=== PATIENT | male | born 1975 ===

== ENCOUNTER 2017-07-08 06:53 | Inpatient (IN) | payer BC ==
--- NOTE | 2017-07-08 08:22 | ED PDOC ---
HPI: Psych/Substance Abuse Time Seen by Provider: 07/08/17 07:17 Chief Complaint (Nursing): Psychiatric Evaluation Chief Complaint (Provider): Anxiety, depresson History Per: Patient History/Exam Limitations: no limitations Onset/Duration Of Symptoms: Intermittent Episodes, Persistent (2 weeks) Current Symptoms Are (Timing): Still Present Suicide/Self Injury Attempted (Context): None Modifying Factor(s): Other (family stressors) Associated Symptoms: Anxiety, Depression, Suicidal Thoughts. denies: Suicidal Plan Additional Complaint(s): 41yo male with no known past medical history, presents to ED for evaluation because he has been feeling "depressed". Patient states for the last 2 weeks, he has been feeling down, unmotivated to work and states he has episodes where he cries without reason. Patient reports he had family stressors 1 year ago related to his marriage but denies any current issue. He reports suicidal ideation but denies any plan. Of note, patient also reporting that his son is "leaving for the army" which has also distressed him. He denies any family history of mental issues. Patient reports occasional alcohol consumption and states he last drank 3 days ago. He denies any other complaints. Past Medical History Reviewed: Historical Data, Nursing Documentation, Vital Signs Vital Signs: Last Vital Signs Temp 98.0 F 07/08/17 07:33 Pulse 62 07/08/17 07:33 Resp 14 07/08/17 07:33 BP 140/73 07/08/17 07:33 Pulse Ox 95 07/08/17 07:33 - Medical History PMH: No Chronic Diseases - Surgical History Surgical History: No Surg Hx - Family History Family History: States: No Known Family Hx - Living Arrangements Living Arrangements: With Family - Social History Current smoker - smoking cessation education provided: No Ex-Smoker (has not smoked in the last 12 months): No Alcohol: Occasional Drugs: Denies - Allergies Allergies/Adverse Reactions: Allergies Allergy/AdvReac Type Severity Reaction Status Date / Time No Known Allergies Allergy Verified 07/08/17 07:58 Review of Systems ROS Statement: Except As Marked, All Systems Reviewed And Found Negative Psych: Positive for: Anxiety, Depression, Suicidal ideation Physical Exam - Reviewed Nursing Documentation Reviewed: Yes Vital Signs Reviewed: Yes - Physical Exam Appears: Positive for: Non-toxic, No Acute Distress Head Exam: Positive for: ATRAUMATIC, NORMAL INSPECTION, NORMOCEPHALIC Skin: Positive for: Normal Color, Warm Eye Exam: Positive for: Normal appearance Neck: Positive for: Normal, Supple Cardiovascular/Chest: Positive for: Regular Rate, Rhythm Respiratory: Positive for: Normal Breath Sounds. Negative for: Respiratory Distress Neurologic/Psych: Positive for: Alert, Oriented, Mood/Affect (tearful appearing) . Negative for: Motor/Sensory Deficits - Laboratory Results Result Diagrams: 07/08/17 09:25 07/08/17 09:25 - ECG O2 Sat by Pulse Oximetry: 95 Medical Decision Making Medical Decision Making: Time: 724 Impression: Anxiety, depression Plan: -- Crisis evaluation Reassess Scribe Attestation: Documented by Bianka Dacosta acting as a scribe for Alisson Quick MD. Provider Attestation: All medical record entries made by the Scribe were at my direction and personally dictated by me. I have reviewed the chart and agree that the record accurately reflects my personal performance of the history, physical exam, medical decision making, and the department course for this patient. I have also personally directed, reviewed, and agree with the discharge instructions and disposition. Disposition - Clinical Impression Clinical Impression: Depression - Patient ED Disposition Is Patient to be Admitted: No Doctor Will See Patient In The: Hospital - Disposition Disposition: Transfer of Care Disposition Time: 10:15 Condition: STABLE Forms: [facility] (Greek) - Pt Status Changed To: Hospital Disposition Of: Inpatient - Admit Certification Admit to Inpatient:: After my assessment, the patient will require hospitalization for at least two midnights. This is because of the severity of symptoms shown, intensity of services needed, and/or the medical risk in this patient being treated as an outpatient. - POA Present On Arrival: None
[2017-07-08 09:40] LABS: BASO % 0.3 % (0.0-2.0); HEMATOCRIT 47.8 % (35.0-51.0); LYMPH # 1.1 K/uL (1.0-4.3); LYMPH % 13.4 % (20.0-40.0); MEAN CELL VOLUME 89.3 fl (80.0-94.0); MEAN CORPUSCULAR HEMOGLOBIN 31.8 pg (27.0-31.0); MEAN CORPUSCULAR HGB CONC 35.6 g/dL (33.0-37.0); MEAN PLATELET VOLUME 8.4 fl (7.2-11.7); MONO # 0.4 K/uL (0.0-0.8); MONO % 4.3 % (0.0-10.0); NEUT # 6.9 K/uL (1.8-7.0); RED CELL DISTRIBUTION WIDTH 12.5 % (11.5-14.5); WHITE BLOOD COUNT 8.4 K/uL (4.8-10.8)
[2017-07-08 09:55] LABS: ALCOHOL SERUM < 10 mg/dl (0-10); BLOOD UREA NITROGEN 10 mg/dl (9-20); CALCIUM 9.6 mg/dL (8.4-10.2); CARBON DIOXIDE 28 mmol/L (22-30); CHLORIDE 104 mmol/L (98-107); GFR AFRICAN-AMERICAN > 60; GLUCOSE,RANDOM 104 mg/dL (75-110); POTASSIUM 3.9 MMOL/L (3.6-5.0); SODIUM 144 mmol/l (132-148)
[2017-07-08 10:11] LABS: RBC URINE 2 /hpf (0-3); URINE BILIRUBIN NEGATIVE (NEGATIVE); URINE BLOOD NEGATIVE (NEGATIVE); URINE COLOR YELLOW (YELLOW); URINE GLUCOSE (UA) NEG (Normal); URINE KETONE TRACE mg/dL (NEGATIVE); URINE LEUKOCYTE ESTERASE NEG Leu/uL (Negative); URINE PROTEIN NEGATIVE (NEGATIVE); URINE UROBILINOGEN 0.2-1.0 mg/dL (0.2-1.0); WBC URINE < 1 /hpf (0-5)
[2017-07-08 11:42] VITALS: O2SAT 97
--- NOTE | 2017-07-08 12:27 | RAD ---
HISTORY: COMPARISON: No prior. TECHNIQUE: Chest PA and lateral FINDINGS: LINES AND TUBES: None. LUNG AND PLEURA: The lungs are well inflated. There is a small calcified nodule in the left upper lobe. No focal consolidation. HEART AND MEDIASTINUM: The heart is not enlarged. The hilar and mediastinal contours are within normal limits. SKELETAL STRUCTURES: The bony structures are within normal limits for the patient's age. VISUALIZED UPPER ABDOMEN: Normal. OTHER FINDINGS: None. IMPRESSION: No active pulmonary disease.
[2017-07-08] MEDS ORDERED: Alum-Mag Hydrox-Simethicone Susp (30 mL) PO PRN (13:52)
[2017-07-08] MEDS ORDERED: Magnesium Hydroxide Susp 30 ml UD PO PRN (13:52)
[2017-07-08] MEDS ORDERED: DiphenhydrAMINE 50 mg/ml Inj IM PRN (13:52)
--- NOTE | 2017-07-08 14:23 | PCM.PSYCH ---
Initial Psychiatric Evaluation - Initial Psychiatric Evaluation Type of Admission: Voluntary Legal Status: Capacity Chief Complaint (in patient's own words): I feel strange, worried and i could not stop crying Patient's Reaction to Hospitalization: pt presented to ER requesting help History of Present Illness and Precipitating Events: pt without previous formal psychiatric diagnosis or treatmentdoing re;atively well till pst two months when he became aware his is possibly having a connection with one of his old friends on [employer], pt became increasingly depressed and anxious, losing trust, pt's son 19 ys old is going to [employer], pt started feeling he is having a lot of losses pt started to have poor sleep with early insomnia, poor appetite, increased anxiety , edginess, passive suicidal ideations feeling he would rather be but no suicidal plan as he felt he would never do that to his children pt reported feeling paranoid at times feeling also something bad would happen, denied other psychotic symptoms deneid manic symptoms denied substance abuse Current Medications: Active Medications Generic Name Dose Route Start Last Admin Trade Name Freq PRN Reason Stop Dose Admin Acetaminophen 650 mg 07/08/17 13:52 Tylenol 325mg Tab PO Q4 PRN Pain, moderate (4-7) Al Hydrox/Mg Hydrox/Simethicone 30 ml 07/08/17 13:52 Maalox Plus 30 Ml PO Q4 PRN Dyspepsia Diphenhydramine HCl 50 mg 07/08/17 13:52 Benadryl IM Q6 PRN Extrapyramidal S/S Unable PO Diphenhydramine HCl 50 mg 07/08/17 13:52 Benadryl PO Q6 PRN Extrapyramidal Symptoms Haloperidol 5 mg 07/08/17 13:52 Haldol PO Q4 PRN Agitation Haloperidol Lactate 5 mg 07/08/17 13:52 Haldol IM Q4 PRN Agitation, Unable to Take PO Lorazepam 2 mg 07/08/17 13:52 Ativan IM Q4 PRN Anxiety/Agitation,Unable PO Lorazepam 2 mg 07/08/17 13:52 Ativan PO Q4 PRN Anxiety/Agitation Magnesium Hydroxide 30 ml 07/08/17 13:52 Milk Of Magnesia PO HS PRN Constipation Mirtazapine 7.5 mg 07/08/17 22:00 Remeron PO HS MONCHO Past Psychiatric History - Past Psychiatric History Explanation of prior treatment: no hx of previous psychiatric hospitalization or treatment History of Abuse: denied History of ETOH/Drug Use: denied History of Family Illness: father history of alcohol use disorder Pertinent Medical Hx (Current Medical&Sleep Prob, Allergies): Allergies Allergy/AdvReac Type Severity Reaction Status Date / Time No Known Allergies Allergy Verified 07/08/17 07:58 No Known Home Med 07/08/17 Mental Status Examination - Personal Presentation Personal Presentation: Looks stated age - Affect Affect: Depressed - Motor Activity Motor Activity: Calm - Reliability in Providing Information Reliability in Providing Information: Good - Speech Speech: Organized - Mood Mood: Depressed, Anxious - Formal Thought Process Formal Thought Process: Paranoia - Hallucinations/Delusions Additional comments: denied perceptual disturbances, non elicited - Obsessions/Compulsions Obsessions: No Compulsions: No - Cognitive Functions Orientation: Person, Place, Situation Sensorium: Alert Attention/Concentration: Attentive Judgement: Intact, as evidence by: Insight regarding need for hospitalization Memory: Recent intact, as evidence by: Ability to recall events of the day - Risk Risk: Suicidal, Diminished functioning - Strength & Assets Inventory Strength & Assets Inventory: Family support, Employment history - Limitations Additional comments: conflict with primary support DSM 5 DX - DSM 5 DSM 5 Diagnosis: major depression single episode - Recommended/Plan of Treatment Treatment Recommendations and Plan of Treatment: start remeron 7.5mg qhs monitor pt for psychopharmacological effects and side effect profile cbt and group therapy Projected ELOS: three days Prognosis: good Discharge Plan and Discharge Criteria: pt no longer depressed
--- NOTE | 2017-07-08 15:36 | PCM.BM ---
- Milieu Protocol Milieu Narrative: start remeron 7.5mg qhs monitor pt for psychopharmacological effects and side effect profile cbt and group therapy Discharge/Continuing Care - Treatment Team Participation Patient/Family/SO Statement: start remeron 7.5mg qhs monitor pt for psychopharmacological effects and side effect profile cbt and group therapy
--- NOTE | 2017-07-08 15:39 | PCM.BM ---
<La Valentine Brayden - Last Filed: 07/08/17 15:40> Treatment Plan Problems - Problems identified on initial assessmt Feelings of Worthlessness Date Initiated: 07/08/17 Time Initiated: 15:37 Assessment reference: NA Status: Active Treatment assets and liabiliti Patient Assests: adapts well, cooperative, resourceful, self-reliant, ADL independent Patient Liabilities: relationship conflicts (did have difficulty with his 9 mos ago, pt states it is okay now.) - Milieu Protocol Maintain good personal hygiene: daily Encourage regular showers, daily Remind patient to perform daily oral care, daily Assist patient to perform ADL's Conduct patient checks and document Observation sheet: Q15 minutes Maintain personal safety: every shift Educate patient to report safety concerns to staff, every shift Monitor environment for contraband/sharps Medication safety: Monitor for expected outcome, potential side effects: every shift, Assess barriers to learning: every shift, Assess readiness for medication education: every shift Milieu Narrative: start remeron 7.5mg qhs monitor pt for psychopharmacological effects and side effect profile cbt and group therapy Discharge/Continuing Care - Treatment Team Participation Patient/Family/SO Statement: start remeron 7.5mg qhs monitor pt for psychopharmacological effects and side effect profile cbt and group therapy <Pushpa Clark - Last Filed: 07/09/17 16:42> Treatment assets and liabiliti Patient Assests: adapts well, cooperative, insightful, motivated, resourceful, self-reliant, ADL independent, physically healthy, good support system, negotiates basic needs, cognitively intact, good interpersonal skills Family Contact Family involvement: Family/SO is involved Family contact: Patient agrees to contact, Family has been contacted by patient , Telephone contact initiated by staff Family contact name: Lois()([phone]) Family contacted how many times per week?: 2 Family contact comment: College Coach placed call to patients to discuss precursors to hospitalization, progress on 3NP, anticipated discharge of 07/10 and aftercare. Voicemail left. College Coach awaiting response. - Goals for Treatment Patient goals for treatment: Patient to continue stabilization on 3NP through medication management and group/supportive therapy. Patient to be encouraged to attend groups regularly to promote self-awareness, compliance, and improve insight, coping skills and self-esteem. Patient to be provided with referral for appropriate level of aftercare to reduce risk of future hospitalizations and ensure safety in the community. Discharge/Continuing Care - Education Needs Education Needs: Patient Medication, Patient Coping Skills, Patient Community resources, Patient Aftercare Safety Plan - Discharge Discharge Criteria: Tolerates medication w/o severe side effects, Free of Suicidal thoughts, Normal sleep pattern, Ability to care for self, Reduction of target symptoms Discharge to:: Home, With Family <Sahil Hill - Last Filed: 07/10/17 13:22> Discharge/Continuing Care - Additional Comments 07/10/17 13:20 Pt seemed hopeful about discharge and is looking forward to attending aftercare and giving psychiatric treatment and therapy a try. Pt's will pick him up this afternoon. Pt did not have any questions or complaints. Pt denied SI/HI and AVT hallucinations. - Treatment Team Participation Was Patient/Family/SO present at Treatment Team Meeting: Yes
--- NOTE | 2017-07-08 18:02 | CARD ---
APPROVED REPORT EKG Measurement Heart [id number] <Conclusion> Sinus bradycardia Otherwise normal ECG
[2017-07-09 08:10] LABS: THYROID STIMULATING HORMONE 0.74 mIU/ML (0.46-4.68)
--- NOTE | 2017-07-09 12:35 | CP.PCM.HP ---
History of Present Illness - History of Present Illness History of Present Illness: pt seen and examined at bedside. nad. pt came in to ER for feelings of depression, admitted for eval and in patient psych managment. pt was seen in my office over the summer for full workup/eval for chest pain. no sig pmh. no new complaints. vss. toleratign po, ambulating. Present on Admission - Present on Admission Any Indicators Present on Admission: No Review of Systems - Constitutional Constitutional: absent: As Per HPI, Anorexia, Chills, Daytime Sleepiness, Excessive Sweating, Fatigue, Fever, Frequent Falls, Headache, Increased Appetite , Lethargy, Malaise, Night Sweats, Snoring, Sleep Apnea, Weight Gain, Weight Loss, Weakness, Other - EENT Eyes: absent: As Per HPI, Blind Spots, Blurred Vision, Change in Vision, Decreased Night Vision, Diplopia, Discharge, Dry Eye, Exophthalmos, Floaters, Irritation, Itchy Eyes, Loss of Peripheral Vision, Pain, Photophobia, Requires Corrective Lenses, Sees Flashes, Spots in Vision, Tunnel Vision, Other Visual Disturbances, Loss of Vision, Other - Cardiovascular Cardiovascular: absent: As Per HPI, Acrocyanosis, Chest Pain, Chest Pain at Rest , Chest Pain with Activity, Claudication, Diaphoresis, Dyspnea, Dyspnea on Exertion, Edema, Irregular Heart Rhythm, Pain Radiating to Arm/Neck/Jaw, Leg Edema, Leg Ulcers, Lightheadedness, Orthopnea, Palpitations, Paroxysmal Nocturnal Dyspnea, Pedal Edema, Radiating Pain, Rapid Heart Rate, Slow Heart Rate, Syncope, Other - Respiratory Respiratory: absent: As Per HPI, Cough, Dyspnea, Hemoptysis, Dyspnea on Exertion , Wheezing, Snoring, Stridor, Pain on Inspiration, Chest Congestion, Excessive Mucous Production, Change in Mucous Color, Pain with Coughing, Other - Gastrointestinal Gastrointestinal: absent: As Per HPI, Abdominal Pain, Belching, Bloating, Change in Bowel Habits, Change in Stool Character, Coffee Ground Emesis, Constipation, Cramping, Diarrhea, Dyspepsia, Dysphagia, Early Satiety, Excessive Flatus, Fecal Incontinence, Heartburn, Hematemesis, Hematochezia, Loose Stools, Melena, Nausea, Odynophagia, Temesmus, Vomiting, Other - Musculoskeletal Musculoskeletal: absent: As Per HPI, Abnormal Gait, Arthralgias, Atrophy, Back Pain, Deformity, Joint Swelling, Limited Range of Motion, Loss of Height, Muscle Cramps, Muscle Weakness, Myalgias, Neck Pain, Numbness, Radiating Pain into Limb, Stiffness, Tingling, Other - Psychiatric Psychiatric: Depression Past Patient History - Past Social History Alcohol: Occasional Drugs: Denies - CARDIAC Hx Cardiac Disorders: No - PULMONARY Hx Respiratory Disorders: No Hx Tuberculosis: No - NEUROLOGICAL Hx Neurological Disorder: No HX Cerebrovascular Accident: No Hx Seizures: No - HEENT Hx HEENT Problems: No - RENAL Hx Chronic Kidney Disease: No - ENDOCRINE/METABOLIC Hx Endocrine Disorders: No - HEMATOLOGICAL/ONCOLOGICAL Hx Blood Disorders: No Hx Cancer: No Hx Human Immunodeficiency Virus (HIV): No - INTEGUMENTARY Hx Dermatological Problems: No - MUSCULOSKELETAL/RHEUMATOLOGICAL Hx Musculoskeletal Disorders: No - GASTROINTESTINAL Hx Gastrointestinal Disorders: No - GENITOURINARY/GYNECOLOGICAL Hx Genitourinary Disorders: No Hx Sexually Transmitted Disorders: No - PSYCHIATRIC Hx Depression: Yes Hx Physical Abuse: No Hx Sexual Abuse: No Hx Substance Use: No - SURGICAL HISTORY Hx Surgeries: No - ANESTHESIA Hx Anesthesia: No Meds Allergies/Adverse Reactions: Allergies Allergy/AdvReac Type Severity Reaction Status Date / Time No Known Allergies Allergy Verified 07/08/17 07:58 Physical Exam - Head Exam Head Exam: ATRAUMATIC, NORMAL INSPECTION - ENT Exam ENT Exam: Mucous Membranes Moist - Respiratory Exam Respiratory Exam: Clear to Auscultation Bilateral, NORMAL BREATHING PATTERN - Cardiovascular Exam Cardiovascular Exam: REGULAR RHYTHM, +S1, +S2 - GI/Abdominal Exam GI & Abdominal Exam: Normal Bowel Sounds, Soft Results - Vital Signs Recent Vital Signs: Last Vital Signs Temp 96.4 F L 07/09/17 09:00 Pulse 58 L 07/09/17 09:00 Resp 18 07/09/17 09:00 BP 131/80 07/09/17 09:00 Pulse Ox 97 07/08/17 12:16 - Labs Result Diagrams: 07/08/17 09:25 07/08/17 09:25 Labs: Laboratory Results - last 24 hr 07/09/17 06:30 Triglycerides 71 Cholesterol 189 LDL Cholesterol Direct 132 H HDL Cholesterol 39 Thyroxine (T4) 9.00 TSH 3rd Generation 0.74 Assessment & Plan - Assessment and Plan (Free Text) Assessment: 1. Depression. pt is stable, admitted to psych started on remeron further management as per psych. 2. h/o chest pain 2/2 musculoskeletal spasm no new management. pt has no sig pmh at this time and is on no chronic medications. will cont to monitor.
--- NOTE | 2017-07-09 12:49 | PCM.PYCHPN ---
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 pt reported improved sleep and appetite denied side effects of medications, reported clearing off of the paranoid delusions denied any side effects of the medications Medical Problems: non reported DSM 5 Symptoms Update: major depression single episode Medication Change: Yes (remeron to 15mg) Mental Status Examination - Cognitive Function Orientation: Person, Place, Situation Attention: WNL Concentration: WNL Association: WNL Fund of Knowledge: WNL - Mood Mood: Depressed, Anxious - Affect Affect: Depressed - Speech Speech: Appropriate - Formal Thought Process Formal Thought Process: No Impairment Psychotic Thoughts and Behaviors: pt denied psychotic symptoms, non elicited - Suicidal Ideation Suicidal Ideation: No - Homicidal Ideation Homicidal Ideation: No Goal/Treatment Plan - Goal/Treatment Plan Need for Continued Stay: Discharge may exacerbated symptoms Progress Toward Problem(s) and Goals/Treatment Plan: increase remeron to 15mg qhs monitor pt for psychopharmacological effects and side effect profile cbt and group therapy Estimated Date of D/C: 07/10/17
[2017-07-10 09:44] VITALS: BP 129/81; PULSE 50; RESP 16; TEMP 96.3
--- NOTE | 2017-07-10 13:05 | PCM.PYCHDC ---
Mental Status Examination - Mental Status Examination Orientation: Person, Place, Situation Memory: Intact Mood: Neutral Affect: Broad Speech: Appropriate Attention: WNL Concentration: WNL Association: WNL Fund of Knowledge: WNL Formal Thought Process: No Impairment Description of patient's judgement and insight: good insight and good judgment Psychotic Thoughts and Behaviors: pt denied psychotic symptoms, non elicited Suicidal Ideation: No Current Homicidal Ideation?: No Discharge Summary - Discharge Note Reason for Hospitalization: pt presented to ER requesting help Laboratory Data: Abnormal Lab Results 07/09/17 07/09/17 06:30 06:30 Hemoglobin A1c 5.5 RPR Nonreactive Consultations:: List each consultation separately and include: 1. Reason for request. 2. Findings. 3. Follow-up Consultations: family practice Summary of Hospital Course include:: 1. Description of specific treatment plan utilized for patients during their course of treatmen. 2. Summarize the time- course for resolution of acute symptoms and/or regressed behaviors. 3. Describe issues identified and worked on during hospitalization. 4. Describe medication utilized. 5. Describe medical problems identified and treated. 6. Reassessment of suicide risk Summary of Hospital Course: pt on admission was started on remeron 7.5mg qhs, this was gradually uptitrated to 15mg qhs CBT, GROUP THERAPY AND SUPPORTIVE THERAPY WAS PROVIDED PATIENT WAS ABLE TO VERBALIZE COPING SKILLS WITH STRESS NO REPORTED SIDE EFFECTS OF MEDICATIONS ON DISCHARGE,MENTAL STATUS WAS STABLE , PT DENIED ANY SUICIDAL OR HOMICIDAL IDEATIONS, DENIED PSYCHOTIC SYMPTOMS, NON ELICITED DISCHARGE MEDICATIONS REMERON 15MG QHS - Diagnosis (1) Major depressive disorder Current Visit: Yes Status: Acute (2) Major depressive disorder Current Visit: Yes Status: Acute - Final Diagnosis (DSM 5) Condition upon Discharge: STABLE DSM 5: MAJOR DEPRESSION SINGLE EPISODE SEVERE Disposition: HOME/ ROUTINE Follow-up Treatment Plan: increase remeron to 15mg qhs monitor pt for psychopharmacological effects and side effect profile cbt and group therapy Prescriptions/Medication Reconciliation: Mirtazapine [Remeron] 15 mg PO HS 30 Days #30 tab - Antipsychotic Medications Pt discharged on 2 or more routine antipsychotic medications: No
== END 2017-07-10 13:31 | disposition home or self-care (01) | DRG 885 ==
LOC: H.ER 06:53 → H.ERHOLD 10:27 → H.PSYCH 12:23
PROVIDERS: ADMIT Psychiatry & Neurology Psychiatry; ATTEND Psychiatry & Neurology Psychiatry
PROC: GZHZZZZ Group Psychotherapy (ICD-10-PCS; principal; 2017-07-08)
PROC: GZ58ZZZ Individual Psychotherapy, Cognitive-Behavioral (ICD-10-PCS; 2017-07-08)
DX: F32.2 Major depressive disorder, single episode, severe without psychotic features (principal); R45.851 Suicidal ideations; F41.9 Anxiety disorder, unspecified; G47.00 Insomnia, unspecified